=== PATIENT | female | born 1990 ===

== ENCOUNTER 2025-02-06 12:26 | Emergency (ER) | payer MEDICAID, SELFPAY ==
[2025-02-06 12:31] VITALS: BP 153/74; PULSE 69; RESP 16; TEMP 36.9; O2SAT 97; BMI 32.7
--- NOTE | 2025-02-06 12:33 | ED.GENADULT ---
HPI - General Adult General Chief complaint: Headache Stated complaint: exacerbation Time Seen by Provider: 02/06/25 13:31 Source: patient and old records reviewed Mode of arrival: ambulatory Limitations: no limitations History of Present Illness ED Provider: GIANCARLO GOMEZ narrative: 34 yo female with a PMH of trigeminal neuralgia bout 2 years ago due to virus followed by PCP and neurology has had neg MRI in past. She started with 2 days of sharp L sided pain that is paroxysmal and hurts the L side of her face and neck. She had the same issues 2 years ago with vision floaters as well. She denies trauma. But noted a swollen lymph node in the neck. She took tylenol and motrin but no relief. Not on blood thinners MD complaint: trigeminal neuralgia Onset (ago): day(s) (2) Location: head Radiation: neck Severity: moderate Quality: stabbing Pain Consistency: intermittent Relieving factors: none Exacerbating factors: none Associated symptoms: other (lymph node of the L neck) Treatments prior to arrival: NSAID and other Related Data Previous Rx's ?Medication ?Instructions ?Recorded carbamazepine 200 mg tablet 100 mg (1/2 x 200 mg) PO BID #20 02/06/25 (Epitol) tabs hydrocodone 5 mg-acetaminophen 325 1 tab PO Q6H PRN pain #10 tabs 02/06/25 mg tablet ondansetron 4 mg disintegrating 4 mg PO Q8H PRN nausea and 02/06/25 tablet vomiting #20 tabs Allergies Allergy/AdvReac Type Severity Reaction Status Date / Time nickel Allergy Rash Verified 02/06/25 12:34 Review of Systems Review of Systems: Constitutional : No Fever, No Chills, No Fatigue ENT/Mouth : No sore throat, No Rhinorrhea Eyes: No Eye Pain, No Swelling, No Redness Cardiovascular : No Chest Pain, No SOB, No Dyspnea on Exertion Respiratory : No Cough, No Sputum Gastrointestinal : No Nausea, No Vomiting, No Diarrhea, No abdominal Pain Genitourinary : No Dysuria, No Urinary Frequency, No Hematuria, Musculoskeletal : No joint pain, No Myalgias, No Joint Swelling Skin : No Skin Lesions, No rash Neuro : No Weakness, No Numbness, No Dizziness, positive Headache Heme/Lymph: No Bruising, No Bleeding, pos Lymphadenopathy All other systems reviewed and are negative Yes all other systems are reviewed and are negative [facility] Past Medical History Attestation statement: The following information was validated with the patient. Source: old records reviewed Social History Social History Smoked in Last 30 Days: No Use of substances other than those prescribed or required for medical reasons: No Advance Directives: No Advance Directives Information Provided: Yes Do you have a plan to hurt others: No Plan Physical Exam ED Vital Signs: Vital Signs - 24 hr 02/06/25 12:31 02/06/25 13:46 02/06/25 15:06 Temperature 98.5 F 98.1 F Pulse Rate 69 66 57 Respiratory Rate 16 16 14 Blood Pressure 153/74 H 120/68 113/64 Pulse Oximetry 97 97 98 Oxygen Delivery Method Room Air Room Air Room Air 02/06/25 16:06 Temperature 98.1 F Pulse Rate 57 Respiratory Rate 14 Blood Pressure 113/64 Pulse Oximetry 98 Oxygen Delivery Method Room Air BMI result Body Mass Index 32.7 Appearance: Alert. Oriented X3. No acute distress. Eyes: Pupils equal, round and reactive to light. ENT: Pharynx normal. bilateral TMs normal Neck: Normal inspection. Neck supple. one small soft mobile L anter cervical node CVS: Normal heart rate and rhythm. Pulses normal. Respiratory: No respiratory distress. Breath sounds normal. Abdomen: Soft and nontender. Skin: Skin warm and dry. Normal skin color. Extremities: No lower extremity edema. Neuro: Oriented X 3. No motor deficit. No sensory deficit. cranial nerve exam not applicable Course Course Course Narrative: Rapid medical examination performed in triage by Heide Ramos PA-C. Patient is a 34 year old assigned female at presenting to the emergency department with trigeminal neuralgia pain. Detailed physical exam and review of systems are deferred to the speech clinician. Patient placed back in the waiting room pending room availability. Medications Administered Discontinued Medications Generic Name Dose Route Start Last Admin Trade Name Freq PRN Reason Stop Dose Admin Carbamazepine 100 mg 02/06/25 13:57 02/06/25 14:30 Carbamazepine 100 Mg Tab.Chew PO 02/06/25 13:58 100 mg ONCE ONE Administration Ondansetron HCl 4 mg 02/06/25 13:57 02/06/25 14:09 Ondansetron Odt 4 Mg Tab.Rapdis TRANSLINGU 02/06/25 13:58 4 mg ONCE ONE Administration Oxycodone HCl 5 mg 02/06/25 13:58 02/06/25 14:08 Oxycodone Hcl Immed Release 5 Mg Tablet PO 02/06/25 13:59 5 mg ONCE ONE Administration Medical Decision Making Medical Decision Making [facility] Narrative: 34 yo female with a PMH of trigeminal neuralgia bout 2 years ago now here with c/o recurrent bout of sharp L facial pain with paroxysmal episodes consistent with prior bout. She is neuro intact, I see no infectious pathology in throat/mouth/ears but has one small lymph node L neck. She is not toxic appearing will provide analgesia and short course of carbamezapine. She is aware and agrees. I am obtaining basic labs and lyme/tsh. Has had prior vison exams and MRI during prior episode with same symptoms. Differential Diagnosis Differential Diagnoses: The differential diagnosis associated with the presentation includes trigeminal neuralgia, viral syndrome Admission/Observation Consideration of admission/observation: Escalation of care including admission/observation considered feels better stable for DC, labs reassuring in ED Lab Data [facility] Lab Attestation statement: I reviewed the patient's lab results. 02/06/25 14:22 02/06/25 14:22 Labs: Lab Results 02/06/25 02/06/25 Range/Units 14:22 14:29 WBC 8.1 (4.8-10.8) X10*3/uL RBC 4.31 (4.20-5.50) X10*6/uL Hgb 12.6 (12.0-16.0) g/dl Hct 36.7 L (37.0-47.0) % MCV 85.2 (80.0-98.0) fL MCH 29.2 (27.0-33.0) pg MCHC 34.3 (31.0-35.0) g/dl RDW 11.7 (11.0-16.0) % Plt Count 251 (160-400) X10*3/uL MPV 8.9 L (9.4-12.3) fL Immature Gran % (Auto) 0.4 (0.0-0.4) % Neut % (Auto) 70.1 (45-73) % Lymph % (Auto) 22.9 (20-40) % [place] % (Auto) 6.1 (2-11) % Eos % (Auto) 0.4 (0-4) % Baso % (Auto) 0.1 (0-2) % Lymph # (Auto) 1.9 (1.2-4.9) X10*3/uL [place] # (Auto) 0.5 (0.1-1.2) X10*3/uL Eos # (Auto) 0.0 (0.0-0.4) X10*3/uL Baso # (Auto) 0.0 (0.0-0.2) X10*3/uL Abs Immat Gran (auto) 0.03 (0.00-0.03) X10*3/uL Absolute Neuts (auto) 5.7 (2.0-8.3) x10*3/uL Absolute Nucleated RBC 0.000 (0.0-0.012) X10*3/uL Nucleated RBC % (auto) 0.0 (0.0-0.2) /100WBC Sodium 142 (135-145) mmol/L Potassium 4.0 (3.3-5.1) mmol/L Chloride 109 H (96-108) mmol/L Carbon Dioxide 27 (22-29) mmol/L Anion Gap 10 L (12-20) BUN 7 L (9-16) mg/dL Creatinine 0.62 (0.5-1.4) mg/dL Estim Creat Clear Calc 147.3 Estimated GFR > 60 Random Glucose 86 (60-115) mg/dL Calcium 9.2 (8.4-10.2) mg/dL Magnesium 1.9 (1.6-2.6) mg/dL Total Bilirubin 0.7 (0.0-1.0) mg/dL Direct Bilirubin 0.2 (0.0-0.5) mg/dL AST 19 (5-31) U/L ALT 20 (0-31) U/L Alkaline Phosphatase 37 L (39-117) U/L Total Creatine Kinase 68 (26-140) U/L Total Protein 7.0 (6.5-8.0) g/dL Albumin 4.1 (3.5-5.0) g/dL TSH 1.22 (0.32-4.0) uIU/mL Beta HCG, Quant < 2 mIU/mL Respiratory Panel Wells See Note Adenovirus (Rapid PCR) Not Detected (Not Detect.) B.pert (TEM-PCR) Not Detected (Not Detect.) B.parapertussis DNA PCR Not Detected (Not Detect.) Lyme Screen IgG & IgM <0.90 index C. pneumoniae DNA (PCR) Not Detected (Not Detect.) Coronavirus OC43 (PCR) Not Detected (Not Detect.) Coronavirus HKU1 (PCR) Not Detected (Not Detect.) Coronavirus 229E (PCR) Not Detected (Not Detect.) Coronavirus NL63 (PCR) Not Detected (Not Detect.) Monoscreen Negative (Negative) Human Metapneumovir PCR Not Detected (Not Detect.) Influenza A (RT-PCR) Not Detected (Not Detect.) Influenza A (H1) PCR Not Detected (Not Detect.) Influ A (H1/09) PCR Not Detected (Not Detect.) Influenza A (H3) PCR Not Detected (Not Detect.) Influenza B (RT-PCR) Not Detected (Not Detect.) M. pneumoniae (PCR) Not Detected (Not Detect.) Parainfluenza 1 (PCR) Not Detected (Not Detect.) Parainfluenza 2 (PCR) Not Detected (Not Detect.) Parainfluenza 3 (PCR) Not Detected (Not Detect.) Parainfluenza 4 (PCR) Not Detected (Not Detect.) RSV (PCR) Not Detected (Not Detect.) Entero/Rhino (PCR) Not Detected (Not Detect.) SARS-CoV-2 RNA (RT-PCR) Not Detected (Not Detect.) S. pyogenes GrpA ROSELYN Negative (Negative) External Record Review External record reviewed: Outpatient record Prescription Management I considered prescription management with: Pain Medication, Antiviral, Antibiotic and Other Discharge Plan Discharge Clinical Impression: Trigeminal neuralgia Patient Disposition: Home, Self-Care Instructions: Trigeminal Neuralgia (ED) Additional Instructions: labs reassuring today pending lab : lyme test we will call you in 72 hours if positive monitor your symptoms and your lymph node to make sure nothing is worsening return for any changes or worsening symptoms or any other concerns your respiratory viral pathogen panel which tests for numerous viruses was negative Prescriptions: New hydrocodone-acetaminophen 5-325 mg tablet 1 tab PO Q6H PRN (Reason: pain) Qty: 10 0RF Rx Instructions: partial fill okay; Partial Fill upon patient request. ondansetron 4 mg tablet,disintegrating 4 mg PO Q8H PRN (Reason: nausea and vomiting) Qty: 20 0RF carbamazepine [Epitol] 200 mg tablet 100 mg PO BID Qty: 20 0RF Stand Alone Forms: Work/School Release Interventions: ED Discharge Assessment Last Done: 02/06/25 16:06 Discharge Date/Time: 02/06/25 16:06 Print Language: South African
[2025-02-06 13:46] VITALS: BP 120/68; PULSE 66; RESP 16; O2SAT 97
--- NOTE | 2025-02-06 13:51 | PC.NURSE ---
Patient is a 34 yo female with a history of viral trigeminal neuralgia and vertigo presents with left head/jaw/ear pain for the past 3 days with assoc body aches, fatigue, amd floaters. Alert and oriented. Lungs clear bilat. Respirations even and non-labored. Abdomen soft, non-tender with positive bowel sounds. No LE edema noted.
[2025-02-06] MEDS: oxyCODONE HCl Immed Release 5 MG TABLET PO (14:08)
--- NOTE | 2025-02-06 14:13 | PC.NURSE ---
tegretol 100 requested from pharmacy
[2025-02-06 14:36] LABS: MANUAL DIFF FLAG NO
[2025-02-06 14:43] LABS: Hematocrit 36.7 % (37.0-47.0); Hemoglobin 12.6 g/dl (12.0-16.0); Imm Gran Abs Auto 0.03 X10*3/uL (0.00-0.03); Imm Gran Pct Auto 0.4 % (0.0-0.4); Lymphocytes Absolute Auto 1.9 X10*3/uL (1.2-4.9); Mean Corpuscular HGB Conc 34.3 g/dl (31.0-35.0); Mean Corpuscular Hemoglobin 29.2 pg (27.0-33.0); Mean Corpuscular Volume 85.2 fL (80.0-98.0); NRBC Abs Auto 0.000 X10*3/uL (0.0-0.012); NRBC Pct Auto 0.0 /100WBC (0.0-0.2); Platelet Count 251 X10*3/uL (160-400); Red Blood Count 4.31 X10*6/uL (4.20-5.50); White Blood Count 8.1 X10*3/uL (4.8-10.8)
[2025-02-06 14:50] LABS: IDNOW Serial# 152EDE1D; Strep A Nucleic Acid Negative (Negative)
--- OUTSIDE RECORDS SUMMARY | 2025-02-06 15:04 | XMS_ITS | Encounter Summary ---
Author Organization [facility] Address [address] [place] [address] Care Team Providers Care Credit Administration Manager Name Role Phone Keena Smith MD Unavailable [phone] Keena Smith MD Primary Care Provider [phone] Encounter Details Date Type Department Care Team (Late st Contact Info) Description 02/09/2023 Clinical Conversion Encounter Department of Neurology [facility] Neurology [address] [address] Clau Warren MD [address] [place] [address] Social History Tobacco Use Types Packs/Day Years Used Date Smoking Tobacco: Never Smokeless Tobacco: Never Alcohol Use Standard Drinks/Week Comments Yes 0 (1 standard drink = 0.6 oz pur e alcohol) Socially Comments Unknown Sex and Gender Information Value Date Recorded Sex Assigned at Female 04/05/2021 8:29 AM EST Legal Sex Female 2:47 PM EST Gender Identity Female 04/05/2021 8:29 AM EST Sexual Orientation Not on file documented as of this encounter Plan of Treatment Not on file documented as of this encounter Visit Diagnoses Not on filedocumented in this encounter Care Teams Credit Administration Manager Relationship Specialty Start Date End Date Keena Smith MD [address] [place] [id number] PCP - Insurance Assigned PCP 08/05/22 Keena Smith MD [address] [place] [phone] PCP - General Internal Medicine 07/09/22 documented as of this encounter
--- OUTSIDE RECORDS SUMMARY | 2025-02-06 15:04 | XMS_ITS | Encounter Summary ---
Author Organization [facility] Address [address] [place] [address] Care Team Providers Care Industrial Insulator Name Role Phone Keena Smith MD Unavailable [phone] Keena Smith MD Primary Care Provider [phone] Encounter Details Date Type Department Care Team (Late st Contact Info) Description 06/19/2023 Clinical Conversion Encounter Department of Neurology [facility] Neurology [address] [address] Clau Warren MD [address] [place] [address] Social History Tobacco Use Types Packs/Day Years [...] on filedocumented in this encounter Care Teams Industrial Insulator Relationship Specialty Start Date End Date Keena Smith MD [address] [place] [phone] PCP - Insurance Assigned PCP 08/05/22 Keena Smith MD [address] [place] [phone] PCP - General Internal Medicine 07/09/22 documented as of this encounter
--- OUTSIDE RECORDS SUMMARY | 2025-02-06 15:04 | XMS_ITS | Clinical Summary ---
Author Organization [facility] Address [address] [place] [address] Care Team Providers Care Medical Tech Name Role Phone Keena Smith MD Unavailable [phone] Keena Smith MD Primary Care Provider [phone] Allergies Active Allergy Reactions Criticality Noted Date Comments Nickel Rash Low 07/16/2022 Medications meclizine (ANTIVERT) 25 mg tabletIndication s:Non-recurrent acute suppurative otitis media of left ear without spontaneous rupture of tympanic membrane Take 1 tablet (25 mg total) by mouth 3 times a day as needed for dizziness or nausea. 20 tablet 1 3 Active tretinoin (RETIN-A) 0.025 % gel Apply topically at bedtime. 20 g 4 4 Active SUMAtriptan (IMITREX) 50 MG tablet Take 1 tablet (50 mg total) by mouth every 2 hours as needed for migraine (for migraine. Do not take more than twice daily or two days/week). 9 tablet 2 3 Active ondansetron (ZOFRAN) 4 MG tablet Take 1 tablet (4 mg total) by mouth every 8 hours as needed for nausea 25 tablet 1 4 Active Active Problems Problem Noted Date Diagnosed Date Near syncope 08/04/2022 Bilateral impacted cerumen 07/21/2022 Vertigo 07/17/2022 Social History Tobacco Use Types Packs/Day Years Used Date Smoking Tobacco: Never Smokeless Tobacco: Never Tobacco Cessation:Counseling Given: Not Answered Alcohol Use Standard Drinks/Week Comments Yes 0 (1 standard drink = 0.6 oz pur e alcohol) Socially Comments Unknown Sex and Gender Information Value Date Recorded Sex Assigned at Female 04/05/2021 8:29 AM EST Legal Sex Female 2:47 PM EST Gender Identity Female 04/05/2021 8:29 AM EST Sexual Orientation Not on file Last Filed Vital Signs Vital Sign Reading Time Taken Comments Blood Pressure 123/82 06/19/2023 2:34 PM EST Pulse 79 06/19/2023 2:34 PM EST Temperature 36.9 C (98.4 F) 08/04/2022 2:38 PM EDT Respiratory Rate 20 08/05/2022 9:15 AM EDT Oxygen Saturation 99% 08/05/2022 6:45 AM EDT Inhaled Oxygen Concentration - - Weight 93 kg (205 lb) 04/23/2023 8:43 AM EST Height 167.6 cm (5' 6 ) 08/04/2022 2:38 PM EDT Body Mass Index 33.09 08/04/2022 2:38 PM EDT Plan of Treatment Health Maintenance Due Date Last Done Comments Depression Screening 1995 Hepatitis C Screening 11/15/2009 Pap Smear 11/15/2012 Cervical Cancer Screening 11/15/2021 HPV/Cotest 11/15/2021 Blood Pressure 06/19/2024 06/19/2023 COVID-19 Vaccine ( season) 2025 04/15/2021, 08/23/2020, 08/02/2020 Influenza Vaccine (#1) 2025 , 02/14/2022, 01/15/2018, Additional history exists DTaP,Tdap,and Td Vaccines (9 - Td or Tdap) 09/22/2033 09/23/2023, 07/29/2010, 09/25/2004, Additional history exists Meningococcal Vaccines Aged Out 11/18/2006 No lo nger eligible based on patient's age to complete this topic Meningococcal B Vaccines Aged Out No longer eligible based on patient's age to complete this topic Pneumococcal Vaccine Aged Out No long er eligible based on patient's age to complete this topic [facility] (O) Address: [facility] [id number] [place] [phone] [facility] ([facility] Address: [facility] [id number] [place] [phone] Care Teams Medical Tech Relationship Specialty Start Date End Date Keena Smith MD [address] [place] [phone] PCP - Insurance Assigned PCP 08/05/22 Keena Smith MD [address] [place] [id number] PCP - General Internal Medicine 07/09/22
--- OUTSIDE RECORDS SUMMARY | 2025-02-06 15:04 | XMS_ITS | Encounter Summary ---
Author Organization [facility] Address [address] [place] [address] [address] [place] [id number] Care Team Providers Care Upholstery Sewer Name Role Phone Keena Smith Md Primary Care Provider [phone] Keena Smith Md Unavailable Reason for Visit * Reason Comments Email Referral Encounter Details Date Type Department Care Team (Late st Contact Info) Description 02/11/2023 Telephone [facility] [address] [place] [phone] [facility], /[place] [address] 0Email Referral Social History Tobacco Use Types Packs/Day Years Used Date Smoking Tobacco: Never Passive Smoke Exposure: Never Smokeless Tobacco: Never Comments Unknown Sex and Gender Information Value Date Recorded Sex Assigned at Female 08/04/2022 10:41 AM EDT Legal Sex Female 10:40 AM EDT Gender Identity Female 08/04/2022 10:41 AM EDT Sexual Orientation Straight 09/23/2023 4: 10 PM EDT documented as of this encounter Miscellaneous Notes * Telephone Encounter - Mikala Tobias - 02/13/2023 10:03 AM EDT Lmom when pateint calls back should be transferred to the navigator, also unfortunately we are not able to email to patients. Mikala Tobias documented in this encounter Plan of Treatment Not on file documented as of this encounter Visit Diagnoses Not on filedocumented in this encounter Care Teams Upholstery Sewer Relationship Specialty Start Date End Date Keena Smith MD [address] [place] [address] PCP - General Internal Medicine 08/04/22 Keena Smith MD [address] [place] [address] PCP - Payer 08/06/22 documented as of this encounter
--- OUTSIDE RECORDS SUMMARY | 2025-02-06 15:04 | XMS_ITS | Encounter Summary ---
Author Organization [facility] Address [address] [place] [address] [address] [place] [id number] Care Team Providers Care Programming Coordinator Name Role Phone Keena Smith Md Primary Care Provider [phone] Keena Smith Md Unavailable Reason for Visit * Reason Comments RX Renewal Problems with Medication Encounter Details Date Type Department Care Team (Late st Contact Info) Description 07/31/2023 Telephone [facility] [address] [place] [phone] [facility], [place] [address] Bmi 33.0-33.9,Adult; Class 1 Obesity Without Serious Comorbidity in Adult, Unspecified Bmi, Unspecified Obesity Type Social History Tobacco Use Types Packs/Day Years Used Date Smoking Tobacco: Never Passive Smoke Exposure: Never Smokeless Tobacco: Never Comments Unknown Sex and Gender Information Value Date Recorded Sex Assigned at Female 08/04/2022 10:41 AM EDT Legal Sex Female 10:40 AM EDT Gender Identity Female 08/04/2022 10:41 AM EDT Sexual Orientation Straight 09/23/2023 4: 10 PM EDT documented as of this encounter Ordered Prescriptions Prescription Sig Dispense Quantity Refills Last Filled Start Date End Date ZEPBOUND 2.5 MG/0.5 ML SUBCUTANEOUS PEN INJECTOR (TIRZEPATIDE)Becka cations:BMI 33.0-33.9,adult,C lass 1 obesity without serious comorbidity in adult, unspecified BMI, unspecified obesity type Administer 2.5 mg subcutaneously once weekly (month 1 RX) 2 mL 0 4 10/03/19 24 phentermine 15 mg capsule Take 1 capsule by mouth every morning 30 capsule 09/23/19 24 documented in this encounter Miscellaneous Notes * Telephone Encounter - Mikala Tobias - 08/05/2023 1:23 PM EDT Attempted to reach no answer. Mikala Tobias * Telephone Encounter - Keena Smith MD - 08/01/2023 2:07 PM EDT Sending to [facility] to see if they have it. If they don't I recommend phentermine which I also sent. If she decides to fill either of these, FU with me in person in 3-4 weeks before she runs out Keena Bello documented in this encounter Plan of Treatment Not on file documented as of this encounter Visit Diagnoses Diagnosis BMI 33.0-33.9,adult Body Mass Index 33.0-33.9, adult Class 1 obesity without serious comorbidity in adult, unspecified BMI, unspecified obesity type documented in this encounter Discontinued Medications Medication Sig Discontinue Reason Start Date End Da te tirzepatide, weight loss, (ZEPBOUND) 2.5 mg/0.5 mL Pen InjectorIndications:B MA 33.0-33.9,adult,Class 1 obesity without serious comorbidity in adult, unspecified BMI, unspecified obesity type Administer 2.5 mg subcutaneously once weekly (month 1 RX) 07/15/2023 08/01/2023 documented as of this encounter Care Teams Programming Coordinator Relationship Specialty Start Date End Date Keena Smith MD [address] [place] [id number] PCP - General Internal Medicine 08/04/22 Keena Smith MD [address] [place] [id number] PCP - Payer 08/06/22 documented as of this encounter
--- OUTSIDE RECORDS SUMMARY | 2025-02-06 15:04 | XMS_ITS | Clinical Summary ---
Author Organization [facility] Address [address] [place] [address] Care Team Providers Care Ward Secretary Name Role Phone Daniel Murillo DO Primary Care Provider [phone] Allergies No known active allergies Medications PARoxetine HCl (PAXIL) 10 MG Tab 1 TABLET DAILY Active Immunizations Immunization Administration Dates Next Due PPD/TST (Tuberculin Skin Test) 06/11/2013 Social History Tobacco Use Types Packs/Day Years Used Date Smoking Tobacco: Never Assessed Comments Unknown Sex and Gender Information Value Date Recorded Sex Assigned at Not on file Legal Sex Female 10:35 PM EDT Gender Identity Not on file Sexual Orientation Not on file Last Filed Vital Signs Vital Sign Reading Time Taken Comments Blood Pressure 105/67 06/11/2013 12:40 PM EST Pulse 83 06/11/2013 12:40 PM EST Temperature 37.1 C (98.7 F) 06/11/2013 12:40 PM EST Respiratory Rate 16 06/11/2013 12:40 PM EST Oxygen Saturation - - Inhaled Oxygen Concentration - - Weight 86.2 kg (190 lb) 06/11/2013 12:40 PM EST Height 167.6 cm (5' 6 ) 06/11/2013 12:40 PM EST Body Mass Index 30.67 06/11/2013 12:40 PM EST Plan of Treatment Health Maintenance Due Date Last Done Comments Hepatitis C Screening 1991 Pap Smear 2007 DTaP/Tdap/Td (1 - Tdap) 11/15/2009 Hep B (1 of 3 - 19+ 3-dose series) 11/15/2010 COVID-19 Vaccine (2023-2 5 season) 2025 Influenza (#1) 2025 Zoster (Shingrix) (1 of 2) 11/15/2041 HPV Vaccine (No Doses Required) Completed Hep A Aged Out No longer eligi ble based on patient's age to complete this topic Hib Aged Out No longer eligi ble based on patient's age to complete this topic Meningococcal ACWY Aged Out No longer eligible based on patient's age to complete this topic Pneumococcal Aged Out No longer eligi ble based on patient's age to complete this topic Insurance * Guarantor: [employer]LLEN [employer] Account Type Relation to Patient Date of Phone Billing Address Personal/Family [address] [place] [phone] [employer] FEE FOR [employer] H[employer] Care Teams Ward Secretary Relationship Specialty Start Date End Date Daniel Murillo DO [address] [place] [id number] PCP - General Internal Medicine 06/11/13
--- OUTSIDE RECORDS SUMMARY | 2025-02-06 15:05 | XMS_ITS | Encounter Summary ---
Author Organization [facility] Address [address] [place] [address] Care Team Providers Care Hand Singer Name Role Phone Keena Smith Md Primary Care Provider Keena Smith Md Unavailable Encounter Details Date Type Department Care Team (Late st Contact Info) Description 02/04/2025 Email Encounter [facility] Campaign, Provider USED CAMPAIGNS FOR SYSTEM DEFINITIONS NON-PROVIDERS NON-PROVIDERS Update your information Social History Tobacco Use Types Packs/Day Years Used Date Smoking Tobacco: Never Passive Smoke Exposure: Never Smokeless Tobacco: Never Alcohol Use Standard Drinks/Week Comments Yes 1 (1 standard drink = 0.6 oz pur e alcohol) Hunger Vital Sign Answer Date Recorded Within the past 12 months, y ou worried that your food would run out before you got the money to buy more. Never true 09/23/19 24 Within the past 12 months, t he food you bought just didn't last and you didn't have money to get more. Never true 09/23/2023 PRAPARE - Transportation Answer Date Re corded In the past 12 months, has l ack of transportation kept you from medical appointments or from getting medications? No 09/08 In the past 12 months, has l ack of transportation kept you from meetings, work, or from getting things needed for daily living? No 09/23/2023 Depression Answer Date Recorded Last PHQ-2 0 09/23/2023 Last PHQ-9 Not on file 09/23/2023 Suicidal Ideation/Self Harm Risk Not on file 09/23/2023 Housing Stability Answer Date Recorded What is your housing situation today? Has enoch castillo 09/23/2023 Are you worried about losing your housing? No 09/23/[address] you li ve. Do you have problem with any of the following? (Choose all that apply) None of the Above Request Assistance Answer Date Recorded Would you like to discuss an y of the needs you identified in this survey with a member of your care team? No 2023 Urgent Assistance Needed Not on file 024 Social Isolation Answer Date Recorded How often do you feel lonely or isolated from th ose around you? Never 09/23/2023 Family Needs Answer Date Recorded In the past year, have you o r any family members that you live with been unable to get resources (utilities such as power, water, or phone service; clothing; childcare; medicine or other healthcare; employment; etc) when they were really needed? No needs 09/23/2023 Other Needs Not on file 09/23/2023 Safety Answer Date Recorded Do you feel physically and e motionally safe where you currently live? Yes 09/23/2023 Self-Management Confidence Answer Date Recorded How confident are you that y ou can control and manage most of your health problems? Please provide numerical response between 0 -10. 0 = Not at all confident, 10= Completely confident. 10 09/23/2023 Comments Unknown Sex and Gender Information Value Date Recorded Sex Assigned at Female 08/04/2022 10:41 AM EDT Legal Sex Female 10:40 AM EDT Gender Identity Female 08/04/2022 10:41 AM EDT Sexual Orientation Straight 09/23/2023 4: 10 PM EDT Occupation Industry Job Start Date Job End Date [employer] Not on file Not on file Not on file documented as of this encounter Plan of Treatment Not on file documented as of this encounter Visit Diagnoses Not on filedocumented in this encounter Care Teams Hand Singer Relationship Specialty Start Date End Date Keena Smith MD [address] [place] [phone] PCP - General Internal Medicine 08/04/22 Keena Smith MD [address] [place] [phone] PCP - Payer 08/06/22 documented as of this encounter
--- OUTSIDE RECORDS SUMMARY | 2025-02-06 15:05 | XMS_ITS | Clinical Summary ---
Author Organization [facility] Address [address] [place] [address] [address] Care Team Providers Care Damage Adjuster Name Role Phone Keena Smith Md Primary Care Provider [phone] Keena Smith Md Unavailable Allergies Active Allergy Reactions Criticality Noted Date Comments Nickel Rash Low 07/16/2022 Whey Rash 09/23/2023 Medications meclizine 25 mg tablet 07/17/19 23 Active tretinoin 0.025 % Gel 07/01/19 23 Active ONDANSETRON HCL 4 MG TAB 1 tablet every 8 hours as needed 60 tablet 0 08/08/19 23 Active ZEPBOUND 2.5 MG/0.5 ML SUBCUTANEOUS PEN INJECTOR (TIRZEPATIDE)Ind ications:BMI 33.0-33.9,adult, Class 1 obesity without serious comorbidity in adult, unspecified BMI, unspecified obesity type Administer 2.5 mg subcutaneously once weekly 2 mL 0 01/15/20 24 Active NORGESTIMATE-ETH INYL ESTRADIOL 0.25 MG-35 MCG TAB (NORGESTIMATE-ET HINYL ESTRADIOL)Indica tions:Family planning, BCP ( control pills) initial prescription Take 1 tablet by mouth daily 84 tablet 4 05/02/20 24 Active Active Problems Problem Noted Date Diagnosed Date Class 1 obesity without serious comorbidity in a dult 07/15/2023 Migraine without status migrainosus, not intract able 07/09/2023 Overview (07/09/2023): Charan neuro Trigeminal neuralgia 07/09/2023 Vertigo 08/07/2022 Eczema 08/07/2022 Near syncope 08/04/2022 Encounters Date Type Department Care Team Description 02/04/2025 Email Encounter [facility] Campaign, Provider Update your information from Last 3 Months Immunizations Immunization Administration Dates Next Due TdaP 09/23/2023 Family History Medical History Relation Comments Other: unknown for father Father Cancer - breast Maternal Aunt early 50's Diabetes - type II Maternal Grandmother Hypertension Mother Relation Status Comments Father Unknown Maternal Aunt Alive Maternal Grandmother Mother Alive Social History Tobacco Use Types Packs/Day Years [...] Industry Job Start Date Job End Date [employer] Not on file Not on file Not on file Obstetrics History Last Filed Vital Signs Vital Sign Reading Time Taken Comments Blood Pressure 108/62 09/23/2023 4:19 PM EDT Pulse 79 09/23/2023 4:19 PM EDT Temperature 35.7 C (96.2 F) 09/23/2023 4:19 PM EDT Respiratory Rate 16 01/28/2023 3:23 PM EDT Oxygen Saturation 97% 09/23/2023 4:19 PM EDT Inhaled Oxygen Concentration - - Weight 93.9 kg (207 lb) 07/09/2023 3:34 PM EST Height 165.1 cm (5' 5 ) 09/23/2023 4:19 PM EDT Body Mass Index 33.41 07/09/2023 3:34 PM EST Plan of Treatment Health Maintenance Due Date Last Done Comments HEP B INITIAL SCREENING 11/15/2009 HEP C SCREENING 11/15/2009 HIV SCREENING 11/15/2009 RUBELLA 11/15/2009 HEPATITIS B VACCINE (1 of 3 - 19+ 3-dose series) 11/15/2010 HPV SCREENIN YR 11/15/2021 COVID-19 Vaccine ( season) 2025 04/15/2021, 08/23/2020, 08/02/2020 FLU SEASONAL (#1) 01/09/2025 02/02/2024, 02/12/2023, 02/14/2022, Additional history exists * GLUCOSE OR A1C SCREENING - Q3YR 07/10/2026 07/11/2023, 07/11/2023, 08/04/2022, Additional history exists PERIODIC HEALTH REVIEW 09/22/2026 09/23/2023 LIPID SCREENING 07/10/2028 07/11/2023 PAP LOW RISK: 5 YR 09/22/2028 09/23/2023 (P erformed outside [facility]) DTAP/TDAP/TD VACCINE (2 - Td or Tdap) 09/22/2033 09/23/2023 HAEMOPHILUS INFLUENZA VACCINE Aged Out No longer eligible based on patient's age to complete this topic HEPATITIS A VACCINE Aged Out No longe r eligible based on patient's age to complete this topic PNEUMOCOCCAL VACCINE(S) Aged Out No l onger eligible based on patient's age to complete this topic POLIO VACCINE Aged Out No longer elig ible based on patient's age to complete this topic RSV Vaccine Infant//toddler Aged Out No longer eligible based on patient's age to complete this topic Procedures Procedure Name Priority Date/Time Associated Diagnosis Comments COMPREHENSIVE METABOLIC PROFILE Routine 07/11/2023 12:01 PM EST Other fatigue LIPID PROFILE Routine 07/11/2023 12:01 PM EST BMI 33.0-33.9,adult from Last 3 Months or Most Recently Relevant to Health Maintenance Results * LIPID PROFILE (07/11/2023 12:01 PM EST) CHOLESTEROL 160 <=199 mg/dL 07/11/2023 1:58 PM EST [facility] HDL 51 >=41 mg/dL 07/11/2023 1:58 PM EST [facility] OF [facility]OLOGY [facility] LAB MED[facility]INE CHOL/HDL RATIO 3.1 <=4.9 07/11/2023 1:58 PM EST [facility] OF PATHOLOGY [facility] LAB MEDIC[facility] LDL 95.4 <=130 mg/dL 07/11/2023 1:58 PM EST [facility] OF PATHOLOGY AND LAB MEDICINE TRIGLYCERIDES 68 <=149 mg/dL 07/11/2023 1:58 PM EST [facility] OF PATHOLOGY AND LAB MEDICINE FASTING STATUS Fasting 07/11/2023 1:58 PM EST [facility] OF PATHOLOGY AND LAB MEDICINE Blood (Blood, Venous) Venipuncture / Unknown 07/11/2023 12:01 PM EST 07/11/2023 12:01 PM EST us Keena Smith GENERAL LAB Final Result [facility] DEPARTMENT OF PATHOLOGY AND LAB MEDICINE [address] [place] [phone] from Last 3 Months or Most Recently Relevant to Health Maintenance Care Teams Damage Adjuster Relationship Specialty Start Date End Date Keena Smith MD [address] [place] [phone] PCP - General Internal Medicine 08/04/22 Keena Smith MD [address] [place] [phone] PCP - Payer 08/06/22
[2025-02-06 15:06] VITALS: BP 113/64; PULSE 57; RESP 14; TEMP 36.7; O2SAT 98
[2025-02-06 15:06] LABS: Alanine Aminotransferase 20 U/L (0-31); Albumin Level 4.1 g/dL (3.5-5.0); Alkaline Phosphatase 37 U/L (39-117); Anion Gap 10 (12-20); Aspartate Amino Transferase 19 U/L (5-31); Blood Urea Nitrogen 7 mg/dL (9-16); Calcium 9.2 mg/dL (8.4-10.2); Carbon Dioxide 27 mmol/L (22-29); Chloride 109 mmol/L (96-108); Creatinine Clr Calc Pharmacy 147.3; Estimated Glomerular Filt Rate > 60; Magnesium 1.9 mg/dL (1.6-2.6); Potassium 4.0 mmol/L (3.3-5.1); Sodium 142 mmol/L (135-145); Total Protein 7.0 g/dL (6.5-8.0)
[2025-02-06 15:43] LABS: Chlamydia pneumoniae PCR Not Detected (Not Detect.); Coronavirus 229E PCR Not Detected (Not Detect.); Coronavirus HKU1 PCR Not Detected (Not Detect.); Coronavirus NL63 PCR Not Detected (Not Detect.); Coronavirus OC43 PCR Not Detected (Not Detect.); RSV PCR Not Detected (Not Detect.); Rhino/Enterovirus PCR Not Detected (Not Detect.)
[2025-02-06 15:44] LABS: Influenza A H1 PCR Not Detected (Not Detect.); Influenza A H1-2009 PCR Not Detected (Not Detect.); Influenza A H3 PCR Not Detected (Not Detect.); SARS-CoV-2 PCR Not Detected (Not Detect.)
[2025-02-06 16:06] VITALS: BP 113/64; PULSE 57; RESP 14; TEMP 36.7; O2SAT 98
[2025-02-07 11:19] LABS: Lyme Abs Screen <0.90 index
== END 2025-02-06 16:06 | disposition home or self-care (01) ==
PROVIDERS: Emergency Provider Emergency Medicine
DX: G50.0 Trigeminal neuralgia (principal); R10.2 Pelvic and perineal pain; R51.9 Headache, unspecified; M54.2 Cervicalgia; Z79.899 Other long term (current) drug therapy
CPT/HCPCS: 80048; 80076; 82550; 83735; 84443; 84702; 85025; 86308; 86617; 86618; 87633; 87651; 99284